=== PATIENT | female | born 1980 | race Caucasian/White ===

== ENCOUNTER 2020-10-19 00:17 | Outpatient (CLI) | payer OTHER, SELFPAY ==
[2020-10-19 17:34] LABS: SARS-CoV-2 RNA PCR Negative
== END 2020-10-19 00:18 | disposition home or self-care (01) ==
LOC: ANHCOVIDDT 00:17
PROVIDERS: PCP Nurse Practitioner Family; Visit Provider Internal Medicine Gastroenterology
DX: Z01.812 Encounter for preprocedural laboratory examination (principal); Z20.822 Contact with and (suspected) exposure to COVID-19
CPT/HCPCS: C9803; U0003; U0005

== ENCOUNTER 2020-10-22 00:15 | Day surgery (SDC) | payer OTHER, SELFPAY ==
[2020-10-02 10:24] VITALS: BMI 25.4
--- NOTE | 2020-10-21 14:29 | WPDANESEPPF ---
Anes - Initial Pre Proc Eval Procedure: Operation Date: 10/22/20 07:30 Proposed Procedures p Screening Colonoscopy - Efren Caban DO Date/Time: 10/21/20 14:29 Surgeon: Efren Caban DO Pre Op Diagnosis: Neoplasm Screening, family hx of neoplasm Patient Data Age: 40 Gender: F Height: 6 ft Weight: 85 kg Allergies Allergy/AdvReac Type Severity Reaction Status Date / Time latex Allergy Mild Rash Verified 10/22/20 06:22 Home Medications Medication Instructions Recorded Confirmed Type ascorbic acid (vitamin C) [Vitamin 500 mg PO BID 10/02/20 10/22/20 History C] capsicum (cayenne) [Cayenne PDR] 447 mg PO DAILY 10/02/20 10/22/20 History empagliflozin [Jardiance] 10 mg PO DAILY 10/02/20 10/22/20 History metformin 1,000 mg PO BID 10/02/20 10/22/20 History multivitamin with minerals 1 cap PO DAILY 10/02/20 10/22/20 History turmeric 400 mg PO DAILY 10/02/20 10/22/20 History vitamin B complex 1 cap PO DAILY 10/02/20 10/22/20 History vitamin C-biotin [Vnrq-Sers-Ccakz 2 tablet PO DAILY 10/02/20 10/22/20 History (vit C-biotin)] Patient hx anesthesia problems: none Family hx anesthesia problems: none PMFSH Past Medical History Medical History (Updated 10/21/20 @ 14:29 by Richard Valdez MD) Asthma Diabetes Social History Social History Smoking packs per day: 0.5 Smoking cigarettes per day: 10.0 Years smoked: 23 Smoking pack-years: 11.50 Smoking status: Current every day smoker Tobacco type: cigarettes Alcohol intake: current Alcohol use details: rarely Substance use: current Substance use type: marijuana Other substance usage details: every other day Last use: 09/30/20 Living arrangements: with family Gender identity (if verbalized by the patient): Female Spiritual care concerns: No Anes - Eval Final PreProcedure Day of Procedure 10/21/20 14:29 Patient weight: overweight Heart: regular rate and rhythm Lungs: clear to auscultation Airway: Mallampati scale class II Neurological: alert and oriented Last oral intake: >/= 8 hours ASA classification: III Emergent: no Anesthetic plan: proceed Anesthesia type and monitoring: general GIVS and standard monitoring Informed Consent: The patient's anesthetic plan and its attendant risks and benefits were discussed with the patient/family/POA. Questions were solicited and answers provided to the satisfaction of the patient/family/POA.
[2020-10-22 06:23] VITALS: BP 107/71; PULSE 94; RESP 16; TEMP 36.3; O2SAT 99
[2020-10-22] MEDS: LACTATED RINGERS 1,000 ML 150 ML IV CONT (06:37)
[2020-10-22 06:44] LABS: Glucose Point of Care 218 (65-105)
--- NOTE | 2020-10-22 07:32 | WPDGICN ---
GI Consult Note Consult date/time: 10/22/20 07:32 HPI: Reason for visit is colonoscopy. This very pleasant lady seen in consultation request of the primary. Impression: Screening colonoscopy. The patient has a family history of colorectal cancer. She has had a 50 lb weight loss. Diabetes mellitus. Tobacco abuse. Recommendation: colonoscopy. History: This very pleasant lady has a negative GI review systems. She has had a 50 lb weight loss. She has a family history colorectal cancer. She is here for screening colonoscopy. Physical examination: General: very pleasant patient in no acute distress. HEENT: Head was normocephalic sclerae is clear mouth without masses neck was supple. Heart: Rate rhythm regular without S3 or S4. Lungs: CTA. Abdomen: Soft with no guarding or rigidity. Bowel sounds were active. Neurologic: Cranial nerves 2 through 12 intact. No focal defects. No clonus. Musculoskeletal system: Revealed no joint tenderness or swelling no muscle atrophy. Extremities: Reveal no significant edema. Skin: Warm and dry with normal turgor. Mental status: intact. Patient is alert and oriented. Review of Systems Review of Systems: All systems reviewed & are unremarkable except as noted in HPI and below [facility] Past Medical History Medical History (Updated 10/21/20 @ 14:29 by Richard Valdez MD) Asthma Diabetes Social History Social History Smoking packs per day: 0.5 Smoking cigarettes per day: 10.0 Years smoked: 23 Smoking pack-years: 11.50 Smoking status: Current every day smoker Tobacco type: cigarettes Alcohol intake: current Alcohol use details: rarely Substance use: current Substance use type: marijuana Other substance usage details: every other day Last use: 09/30/20 Living arrangements: with family Gender identity (if verbalized by the patient): Female Spiritual care concerns: No Meds Home Medications and Allergies Home Medications Medication Instructions Recorded Confirmed Type ascorbic acid (vitamin C) [Vitamin 500 mg PO BID 10/02/20 10/22/20 History C] capsicum (cayenne) [Cayenne PDR] 447 mg PO DAILY 10/02/20 10/22/20 History empagliflozin [Jardiance] 10 mg PO DAILY 10/02/20 10/22/20 History metformin 1,000 mg PO BID 10/02/20 10/22/20 History multivitamin with minerals 1 cap PO DAILY 10/02/20 10/22/20 History turmeric 400 mg PO DAILY 10/02/20 10/22/20 History vitamin B complex 1 cap PO DAILY 10/02/20 10/22/20 History vitamin C-biotin [Efdh-Pvlr-Jvpsf 2 tablet PO DAILY 10/02/20 10/22/20 History (vit C-biotin)] Allergies Allergy/AdvReac Type Severity Reaction Status Date / Time latex Allergy Mild Rash Verified 10/22/20 06:22 Vital Signs Vital Signs - 24 hr 10/22/20 06:23 Temperature 36.3 C L Pulse Rate 94 Respiratory Rate 16 Blood Pressure 107/71 Pulse Oximetry 99
[2020-10-22] MEDS: SIMETHICONE ORAL SUSPENSION 20 MG/0.3 ML 30 ML BOTTLE 0.6 ML IRRIGATION (07:46)
[2020-10-22 08:07] VITALS: BP 88/54; PULSE 77; RESP 18; O2SAT 99
[2020-10-22 08:17] VITALS: BP 95/61; PULSE 72; RESP 20; O2SAT 99
[2020-10-22 08:27] VITALS: BP 104/64; PULSE 71; RESP 19; O2SAT 99
== END 2020-10-22 08:45 | disposition home or self-care (01) ==
PROVIDERS: PCP Nurse Practitioner Family; Visit Provider Internal Medicine Gastroenterology
PROC: 0DJD8ZZ Inspection of Lower Intestinal Tract, Via Natural or Artificial Opening Endoscopic (ICD-10-PCS; CPT 45378; principal; 2020-10-22 07:30)
DX: Z12.11 Encounter for screening for malignant neoplasm of colon (principal); D12.4 Benign neoplasm of descending colon; D12.5 Benign neoplasm of sigmoid colon; Z80.0 Family history of malignant neoplasm of digestive organs; J45.909 Unspecified asthma, uncomplicated; E11.9 Type 2 diabetes mellitus without complications; Z79.84 Long term (current) use of oral hypoglycemic drugs; F17.210 Nicotine dependence, cigarettes, uncomplicated; F12.90 Cannabis use, unspecified, uncomplicated
CPT/HCPCS: 45385; 45380; 82948; 88305; J2704; J7120

== ENCOUNTER → 2020-12-04 01:56 | Outpatient (CLI) | payer OTHER, SELFPAY ==
[2020-12-04 19:28] LABS: SARS-CoV-2 RNA PCR Negative
== END ==
PROVIDERS: PCP Nurse Practitioner Family; Visit Provider Internal Medicine Gastroenterology
DX: Z01.812 Encounter for preprocedural laboratory examination (principal); Z20.822 Contact with and (suspected) exposure to COVID-19
CPT/HCPCS: C9803; U0003; U0005

== ENCOUNTER 2020-12-07 01:34 | Day surgery (SDC) | payer OTHER, SELFPAY ==
[2020-11-20 13:43] VITALS: BMI 24.4
[2020-12-07 11:56] VITALS: BP 114/80; PULSE 95; RESP 18; TEMP 36.1; O2SAT 97
[2020-12-07] MEDS: LACTATED RINGERS 1,000 ML 150 ML IV CONT (12:09)
--- NOTE | 2020-12-07 12:12 | WPDANESEPPF ---
Anes - Initial Pre Proc Eval Procedure: Operation Date: 12/07/20 12:30 Proposed Procedures p Esophagogastroduodenoscopy - Efren Caban DO Date/Time: 12/07/20 12:12 Surgeon: Efren Caban DO Pre Op Diagnosis: unintentional weight loss Patient Data Age: 40 Gender: F Height: 6 ft 1 in Weight: 83.2 kg Last Vital Signs Temp 97.0 F L 12/07/20 11:56 Pulse 95 12/07/20 11:56 Resp 18 12/07/20 11:56 BP 114/80 12/07/20 11:56 Pulse Ox 97 12/07/20 11:56 Allergies Allergy/AdvReac Type Severity Reaction Status Date / Time latex Allergy Mild Rash Verified 12/07/20 11:48 Home Medications Medication Instructions Recorded Confirmed Type ascorbic acid (vitamin C) [Vitamin 500 mg PO BID 10/02/20 11/20/20 History C] capsicum (cayenne) [Cayenne PDR] 447 mg PO DAILY 10/02/20 11/20/20 History empagliflozin [Jardiance] 10 mg PO DAILY 10/02/20 11/20/20 History metformin 1,000 mg PO BID 10/02/20 11/20/20 History multivitamin with minerals 1 cap PO DAILY 10/02/20 11/20/20 History turmeric 400 mg PO DAILY 10/02/20 11/20/20 History vitamin B complex 1 cap PO DAILY 10/02/20 11/20/20 History vitamin C-biotin [Tmez-Xipu-Exjdl 2 tablet PO DAILY 10/02/20 11/20/20 History (vit C-biotin)] Patient hx anesthesia problems: none Family hx anesthesia problems: none PMFSH Past Medical History Medical History (Updated 10/21/20 @ 14:29 by Richard Valdez MD) Asthma Diabetes Social History Social History Smoking packs per day: 0.5 Smoking cigarettes per day: 10.0 Years smoked: 22 Smoking pack-years: 11.00 Smoking status: Current every day smoker Tobacco type: cigarettes Alcohol intake: current Alcohol use details: 1-2 PER MONTH Substance use: current Substance use type: marijuana Other substance usage details: NIGHTLY Last use: 09/30/20 Living arrangements: with family Gender identity (if verbalized by the patient): Female Spiritual care concerns: No Anes - Eval Final PreProcedure Day of Procedure 12/07/20 12:12 Patient weight: overweight Heart: regular rate and rhythm Lungs: clear to auscultation Airway: Mallampati scale class II Neurological: alert and oriented Last oral intake: >/= 8 hours ASA classification: III Emergent: no Anesthetic plan: proceed Anesthesia type and monitoring: general GIVS and standard monitoring Informed Consent: The patient's anesthetic plan and its attendant risks and benefits were discussed with the patient/family/POA. Questions were solicited and answers provided to the satisfaction of the patient/family/POA.
[2020-12-07 12:18] LABS: Glucose Point of Care 197 (65-105)
--- NOTE | 2020-12-07 14:02 | WPDGICN ---
GI Consult Note Consult date/time: 12/07/20 14:02 HPI: Reason for visit is EGD. This very pleasant lady seen in consultation request the primary physician. Impression: Profound unintentional weight loss. Adenomatous colon polyps. Asthma. Diabetes mellitus. Tobacco abuse. Recommendation: EGD. History this very pleasant lady is being evaluated for unintentional weight loss. She lost 50 lb in approximately 6 months. She was eating normally. She did not have any significant GI symptoms at this time. Colonoscopy revealed adenomatous colon polyps. She has a family history of colon cancer. She is here for EGD. Physical examination: General: very pleasant patient in no acute distress. HEENT: Head was normocephalic sclerae is clear mouth without masses neck was supple. Heart: Rate rhythm regular without S3 or S4. Lungs: CTA. Abdomen: Soft with no guarding or rigidity. Bowel sounds were active. Neurologic: Cranial nerves 2 through 12 intact. No focal defects. No clonus. Musculoskeletal system: Revealed no joint tenderness or swelling no muscle atrophy. Extremities: Reveal no significant edema. Skin: Warm and dry with normal turgor. Mental status: intact. Patient is alert and oriented. Review of Systems Review of Systems: All systems reviewed & are unremarkable except as noted in HPI and below PMFSH Past Medical History Medical History (Updated 12/07/20 @ 14:01 by Efren Caban DO) Adenomatous colon polyp Asthma Diabetes Family History Family History (Updated 12/07/20 @ 14:01 by Efren Caban DO) Other Carcinoma of colon Social History Social History Smoking packs per day: 0.5 Smoking cigarettes per day: 10.0 Years smoked: 22 Smoking pack-years: 11.00 Smoking status: Current every day smoker Tobacco type: cigarettes Alcohol intake: current Alcohol use details: 1-2 PER MONTH Substance use: current Substance use type: marijuana Other substance usage details: NIGHTLY Last use: 09/30/20 Living arrangements: with family Gender identity (if verbalized by the patient): Female Spiritual care concerns: No Meds Home Medications and Allergies Home Medications Medication Instructions Recorded Confirmed Type ascorbic acid (vitamin C) [Vitamin 500 mg PO BID 10/02/20 11/20/20 History C] capsicum (cayenne) [Cayenne PDR] 447 mg PO DAILY 10/02/20 11/20/20 History empagliflozin [Jardiance] 10 mg PO DAILY 10/02/20 11/20/20 History metformin 1,000 mg PO BID 10/02/20 11/20/20 History multivitamin with minerals 1 cap PO DAILY 10/02/20 11/20/20 History turmeric 400 mg PO DAILY 10/02/20 11/20/20 History vitamin B complex 1 cap PO DAILY 10/02/20 11/20/20 History vitamin C-biotin [Bxyh-Sryg-Vljim 2 tablet PO DAILY 10/02/20 11/20/20 History (vit C-biotin)] Allergies Allergy/AdvReac Type Severity Reaction Status Date / Time latex Allergy Mild Rash Verified 12/07/20 11:48 Vital Signs Vital Signs - 24 hr 12/07/20 11:56 Temperature 36.1 C L Pulse Rate 95 Respiratory Rate 18 Blood Pressure 114/80 Pulse Oximetry 97
[2020-12-07] MEDS: BENZOCAINE (*SP) 60 ML SPRAY CAN (HURRICAINE) 1 SPRAY MUCOUS MEM (14:06)
[2020-12-07 14:20] VITALS: BP 85/63; PULSE 86; RESP 25; O2SAT 96
[2020-12-07 14:30] VITALS: BP 104/71; PULSE 90; RESP 14; O2SAT 97
[2020-12-07 14:40] VITALS: BP 103/70; PULSE 84; RESP 19; O2SAT 97
== END 2020-12-07 14:51 | disposition home or self-care (01) ==
PROVIDERS: PCP Nurse Practitioner Family; Visit Provider Internal Medicine Gastroenterology
PROC: 0DJ08ZZ Inspection of Upper Intestinal Tract, Via Natural or Artificial Opening Endoscopic (ICD-10-PCS; CPT 43235; principal; 2020-12-07 12:30)
DX: R63.4 Abnormal weight loss (principal); K29.80 Duodenitis without bleeding; D13.0 Benign neoplasm of esophagus; Z79.84 Long term (current) use of oral hypoglycemic drugs; J45.909 Unspecified asthma, uncomplicated; E11.9 Type 2 diabetes mellitus without complications; F17.210 Nicotine dependence, cigarettes, uncomplicated; F12.90 Cannabis use, unspecified, uncomplicated
CPT/HCPCS: 43239; 82948; 87081; 88305; J2704; J7120